=== PATIENT | female | born 1960 | race Caucasian/White ===

== ENCOUNTER → 2020-09-18 | Outpatient (CLI) | payer MEDICARE, BC ==
--- NOTE | 2020-09-18 15:53 | XR ---
KUB HISTORY: Kidney stone, bilateral flank pain frontal KUB on 2 images correlated to prior abdomen dated 09/29/2008 Multiple calcifications are seen overlying the right kidney special lower pole, largest measuring 2 c m, at least 3 calcifications are present, left sided calcifications are also present, largest measuri ng 10 mm, approximately 30 to present. Retained fecal debris present throughout the distribution of t he colon. No pneumoperitoneum. Multiple calcifications are again noted within the pelvis which may be vascular. IMPRESSION: Bilateral nephrolithiasis, correlate for fecal stasis.
== END | disposition home or self-care (01) ==
LOC: RADXRMAIN 10:56
PROVIDERS: ATTEND Urology
DX: N20.0 Calculus of kidney (principal)
CPT/HCPCS: 74018

== ENCOUNTER → 2021-12-26 | Outpatient (CLI) | payer MEDICARE, BC ==
[2021-12-27 03:00] LABS: Alternaria alternata IgE <0.10 kU/L; Aspergillus fumagatus IgE <0.10 kU/L; Birch IgE <0.10 kU/L; Cat Epith & Dander IgE <0.10 kU/L; Cladosporian herbarum IgE <0.10 kU/L; Clam IgE <0.10 kU/L; Cockroach IgE <0.10 kU/L; Codfish IgE <0.10 kU/L; Dermato. farinae IgE <0.10 kU/L; Dog Dander IgE <0.10 kU/L; Egg White IgE 0.15 kU/L; Elm IgE <0.10 kU/L; Maple (Box Elder) IgE <0.10 kU/L; Oak IgE <0.10 kU/L; Peanut IgE <0.10 kU/L; Ragweed,Common IgE <0.10 kU/L; Red Top (Bentgrass) IgE 1.31 kU/L; Scallop IgE <0.10 kU/L; Shrimp IgE <0.10 kU/L; Soybean IgE <0.10 kU/L; Walnut IgE (Food) <0.10 kU/L
== END | disposition home or self-care (01) ==
LOC: LABWHC1 10:19
PROVIDERS: ATTEND Internal Medicine Critical Care Medicine
DX: J45.909 Unspecified asthma, uncomplicated (principal)
CPT/HCPCS: 36415; 82785; 85008; 86003

== ENCOUNTER 2022-01-04 17:32 | Emergency (ER) | payer MEDICARE, BC ==
[2022-01-04] MEDS ORDERED: ONDANSETRON 4 MG/2 ML VIAL IVP STA (19:26)
[2022-01-04] MEDS ORDERED: SODIUM CHLORIDE 0.9% 1,000 ML IV STA (19:26)
[2022-01-04] MEDS ORDERED: KETOROLAC 15 MG/ML 1 ML VIAL IVP STA (19:26)
--- NOTE | 2022-01-04 19:29 | ED ---
General Adult HPI - General Chief complaint: Abdominal Pain Stated complaint: Kidney Stone Time Seen by Provider: 01/04/22 19:25 Source: patient, RN notes reviewed, old records reviewed Mode of arrival: ambulatory Limitations: no limitations - History of Present Illness Initial comments: Well-appearing 61-year-old female presenting with complaints of dysuria and right flank pain for 4 days. Patient has a history of kidney stones and feels like this is a kidney stone. She did call her primary care doctor when she developed dysuria 2 days ago and was prescribed Cipro. She took her first dose this morning. She is also taking Zofran that she had prescribed for migraine headaches in the past for nausea. Denies any vomiting. Decreased appetite to day. Denies any fevers. -: days(s) (4) Location: right (flank) Severity scale (1-10): 8 Quality: constant Consistency: constant Associated Symptoms: nausea/vomiting (No vomiting), other (Dysuria) Treatments Prior to Arrival: other (Cipro, Zofran) - Related Data Allergies Allergy/AdvReac Type Severity Reaction Status Date / Time codeine Allergy Rash/Hives Verified 01/04/22 18:15 Penicillins Allergy Rash/Hives Verified 01/04/22 18:15 pregabalin [From Lyrica] Allergy Rash/Hives Verified 01/04/22 18:15 Sulfa (Sulfonamide Allergy Rash/Hives Verified 01/04/22 18:15 Antibiotics) Review of Systems ROS Statement: Those systems with pertinent positive or pertinent negative responses have been documented in the HPI. ROS Other: All systems not noted in ROS Statement are negative. Past Medical History Past Medical History: Asthma Additional Past Medical History / Comment(s): medulary sponge kidneys, chronic kidney stones, migraines History of Any Multi-Drug Resistant Organisms: None Reported Past Surgical History: Appendectomy, Back Surgery, Tonsillectomy Additional Past Surgical History / Comment(s): lithotripsy, neck plate Past Psychological History: No Psychological Hx Reported Smoking Status: Never smoker Past Alcohol Use History: None Reported Past Drug Use History: None Reported General Exam Limitations: no limitations General appearance: alert, in no apparent distress Head exam: Present: atraumatic Eye exam: Absent: scleral icterus, conjunctival injection ENT exam: Present: mucous membranes moist Neck exam: Present: full ROM. Absent: meningismus Respiratory exam: Present: normal lung sounds bilaterally. Absent: respiratory distress, accessory muscle use Cardiovascular Exam: Present: regular rate Extremities exam: Present: normal capillary refill. Absent: pedal edema Back exam: Present: CVA tenderness (R) Neurological exam: Present: alert, oriented X3, normal gait Psychiatric exam: Present: normal affect, normal mood Skin exam: Present: warm, dry. Absent: cyanosis, diaphoretic, petechiae, pallor Course Vital Signs 01/04/22 01/04/22 18:15 21:34 Temperature 98.2 F 98.3 F Pulse Rate 94 92 Respiratory 16 20 Rate Blood Pressure 118/72 130/69 O2 Sat by Pulse 100 96 Oximetry Medical Decision Making - Medical Decision Making UA shows cloudy urine with moderate blood, greater than 182 white blood cells, rare bacteria. No evidence of leukocytosis with white blood cell count 10.5. Kidney function within normal limits. Patient is afebrile. No vomiting in the emergency room. She is currently on Cipro prescribed by her doctor and she took her first dose this morning. Stones are evident on KUB. CT ordered to rule out hydronephrosis. Numerous large nonobstructing bilateral renal calculi. No hydronephrosis. Bladder distends smoothly. Ureters are not dilated. Patient was offered Toradol for pain but states she cannot take Toradol because it caused stomach ulcers in the past, states Percocet has worked in the past. She was given fentanyl in the emergency room for pain. She was directed to follow up on Friday with Dr. Kelley. Case discussed with Dr. Thomas. - Lab Data Result diagrams: 01/04/22 19:41 01/04/22 19:41 Lab Results 01/04/22 01/04/22 01/04/22 Range/Units 19:41 19:41 19:41 WBC 10.5 (3.8-10.6) k/uL RBC 5.22 (3.80-5.40) m/uL Hgb 16.3 H (11.4-16.0) gm/dL Hct 47.5 H (34.0-46.0) % MCV 91.1 (80.0-100.0) fL MCH 31.3 (25.0-35.0) pg MCHC 34.4 (31.0-37.0) g/dL RDW 12.8 (11.5-15.5) % Plt Count 354 (150-450) k/uL MPV 7.3 Neutrophils % 69 % Lymphocytes % 20 % Monocytes % 6 % Eosinophils % 2 % Basophils % 1 % Neutrophils # 7.3 (1.3-7.7) k/uL Lymphocytes # 2.1 (1.0-4.8) k/uL Monocytes # 0.6 (0-1.0) k/uL Eosinophils # 0.3 (0-0.7) k/uL Basophils # 0.1 (0-0.2) k/uL Sodium 137 (137-145) mmol/L Potassium 4.1 (3.5-5.1) mmol/L Chloride 100 (98-107) mmol/L Carbon Dioxide 29 (22-30) mmol/L Anion Gap 8 mmol/L BUN 16 (7-17) mg/dL Creatinine 0.76 (0.52-1.04) mg/dL Est GFR (CKD-EPI)AfAm >90 (>60 ml/min/1.73 sqM) Est GFR (CKD-EPI)NonAf 85 (>60 ml/min/1.73 sqM) Glucose 106 H (74-99) mg/dL Plasma Lactic Acid Arpit (0.7-2.0) mmol/L Calcium 9.9 (8.4-10.2) mg/dL Total Bilirubin 1.4 H (0.2-1.3) mg/dL AST 23 (14-36) U/L ALT 24 (4-34) U/L Alkaline Phosphatase 131 H (38-126) U/L Total Protein 7.8 (6.3-8.2) g/dL Albumin 4.8 (3.5-5.0) g/dL Urine Color Yellow Urine Appearance Cloudy H (Clear) Urine pH 7.0 (5.0-8.0) Ur Specific [place] 1.009 (1.001-1.035) Urine Protein Negative (Negative) Urine Glucose (UA) Negative (Negative) Urine Ketones Negative (Negative) Urine Blood Moderate H (Negative) Urine Nitrite Negative (Negative) Urine Bilirubin Negative (Negative) Urine Urobilinogen <2.0 (<2.0) mg/dL Ur Leukocyte Esterase Large H (Negative) Urine RBC 10 H (0-5) /hpf Urine WBC >182 H (0-5) /hpf Urine WBC Clumps Moderate H (None) /hpf Urine Bacteria Rare H (None) /hpf 01/04/22 Range/Units 19:41 WBC (3.8-10.6) k/uL RBC (3.80-5.40) m/uL Hgb (11.4-16.0) gm/dL Hct (34.0-46.0) % MCV (80.0-100.0) fL MCH (25.0-35.0) pg MCHC (31.0-37.0) g/dL RDW (11.5-15.5) % Plt Count (150-450) k/uL MPV Neutrophils % % Lymphocytes % % Monocytes % % Eosinophils % % Basophils % % Neutrophils # (1.3-7.7) k/uL Lymphocytes # (1.0-4.8) k/uL Monocytes # (0-1.0) k/uL Eosinophils # (0-0.7) k/uL Basophils # (0-0.2) k/uL Sodium (137-145) mmol/L Potassium (3.5-5.1) mmol/L Chloride (98-107) mmol/L Carbon Dioxide (22-30) mmol/L Anion Gap mmol/L BUN (7-17) mg/dL Creatinine (0.52-1.04) mg/dL Est GFR (CKD-EPI)AfAm (>60 ml/min/1.73 sqM) Est GFR (CKD-EPI)NonAf (>60 ml/min/1.73 sqM) Glucose (74-99) mg/dL Plasma Lactic Acid Arpit 1.1 (0.7-2.0) mmol/L Calcium (8.4-10.2) mg/dL Total Bilirubin (0.2-1.3) mg/dL AST (14-36) U/L ALT (4-34) U/L Alkaline Phosphatase (38-126) U/L Total Protein (6.3-8.2) g/dL Albumin (3.5-5.0) g/dL Urine Color Urine Appearance (Clear) Urine pH (5.0-8.0) Ur Specific [place] (1.001-1.035) Urine Protein (Negative) Urine Glucose (UA) (Negative) Urine Ketones (Negative) Urine Blood (Negative) Urine Nitrite (Negative) Urine Bilirubin (Negative) Urine Urobilinogen (<2.0) mg/dL Ur Leukocyte Esterase (Negative) Urine RBC (0-5) /hpf Urine WBC (0-5) /hpf Urine WBC Clumps (None) /hpf Urine Bacteria (None) /hpf Disposition Clinical Impression: UTI (urinary tract infection), Kidney stones Disposition: HOME SELF-CARE Condition: Good Instructions (If sedation given, give patient instructions): Kidney Stones (ED), Urinary Tract Infection in Women (ED) Additional Instructions: Continue taking the Cipro as prescribed for the urinary tract infection. Follow -up with your primary care doctor and Dr. Amato for continuation of care. Return to the emergency room with any new or concerning symptoms including fever, persistent nausea vomiting or inability to urinate. Is patient prescribed a controlled substance at d/c from ED?: No Referrals: Nonstaff,Physician [REFERRING] - 1-2 days Kendrick Amato MD [STAFF PHYSICIAN] - 1-2 days Time of Disposition: 21:17
[2022-01-04 20:00] LABS: Appearance,Urine Cloudy (Clear); Bacteria,Urine Rare /hpf; Bilirubin,Urine Negative (Negative); Blood,Urine Moderate (Negative); Color,Urine Yellow; Glucose,Urine (UA) Negative (Negative); Ketones,Urine Negative (Negative); Leukocyte Esterase,Urine Large (Negative); Nitrite,Urine Negative (Negative); Protein,Urine Negative (Negative); RBC,Urine 10 /hpf (0-5); Specific Gravity,Urine 1.009 (1.001-1.035); Urobilinogen,Urine <2.0 mg/dL (<2.0); WBC,Urine >182 /hpf (0-5)
[2022-01-04] MEDS ORDERED: fentaNYL (PF) 50 MCG/ML 2 ML AMP IVP STA (20:13)
[2022-01-04] MEDS ORDERED: cefTRIAXone IN SWFI 1,000 MG/10 ML SYRINGE IVP STA (20:14)
--- NOTE | 2022-01-04 20:18 | XR ---
EXAMINATION TYPE: XR KUB DATE OF EXAM: 01/04/2022 COMPARISON: 09/18/2020 HISTORY: Flank pain TECHNIQUE: 2 views upright FINDINGS: There is no sign of intestinal obstruction or pneumoperitoneum. There are numerous calcific ations over both kidneys. The largest calcification measures almost 2 cm over the interpolar right ki dney. There are multiple smaller calcifications ridging up to 6 mm. Lung bases are clear. No evidence of a mass. Bony structures are intact. IMPRESSION: Numerous bilateral renal calcifications without significant change. Nonacute abdomen.
[2022-01-04 20:24] LABS: Basophils # (A) 0.1 k/uL (0-0.2); Basophils % (A) 1 %; Eosinophils # (A) 0.3 k/uL (0-0.7); Eosinophils % (A) 2 %; HCT 47.5 % (34.0-46.0); HGB 16.3 gm/dL (11.4-16.0); Lymphocytes # (A) 2.1 k/uL (1.0-4.8); Lymphocytes % (A) 20 %; MCH 31.3 pg (25.0-35.0); MCHC 34.4 g/dL (31.0-37.0); MCV 91.1 fL (80.0-100.0); Mean Platelet Volume 7.3; Monocytes # (A) 0.6 k/uL (0-1.0); Monocytes % (A) 6 %; Neutrophils # (A) 7.3 k/uL (1.3-7.7); Neutrophils % (A) 69 %; Platelet Count 354 k/uL (150-450); RBC 5.22 m/uL (3.80-5.40); RDW 12.8 % (11.5-15.5); WBC 10.5 k/uL (3.8-10.6)
[2022-01-04 20:50] LABS: ALT 24 U/L (4-34); AST 23 U/L (14-36); African American GFR (CKD) >90 (>60 ml/min/1.73 sqM); Albumin 4.8 g/dL (3.5-5.0); Alkaline Phosphatase 131 U/L (38-126); Anion Gap 8 mmol/L; Blood Urea Nitrogen 16 mg/dL (7-17); Calcium 9.9 mg/dL (8.4-10.2); Carbon Dioxide 29 mmol/L (22-30); Chloride 100 mmol/L (98-107); Glucose 106 mg/dL (74-99); Non-African American GFR(CKD) 85 (>60 ml/min/1.73 sqM); Potassium 4.1 mmol/L (3.5-5.1); Sodium 137 mmol/L (137-145); Total Bilirubin 1.4 mg/dL (0.2-1.3); Total Protein 7.8 g/dL (6.3-8.2)
--- NOTE | 2022-01-04 21:07 | CT ---
EXAMINATION TYPE: CT abdomen pelvis wo con DATE OF EXAM: 01/04/2022 COMPARISON: None HISTORY: right flank [ain CT DLP: 600.1 mGycm Automated exposure control for dose reduction was used. Images obtained from the diaphragm to the floor the pelvis with no contrast. The lung bases are clear. No pleural effusion. Heart size is normal. No pericardial effusion. Liver s pleen stomach pancreas and gallbladder appear intact. The bile ducts are not dilated. There is no adrenal mass. Kidneys have normal size and contour. There are numerous bilateral renal ca lculi up to 2 cm. No retroperitoneal adenopathy. The bladder distends smoothly. No inguinal hernia. N o hydronephrosis. The ureters are not dilated. Lumbar vertebrae have a first-degree L4-5 spondylolisthesis. No lumbar compression fracture. There is bilateral L4 spondylolysis. There is moderate disc space narrowing at L4-5. Bony pelvis is intact. T he hip joints are intact. There is no mesenteric edema. No ascites or free air. No sign of a bowel obstruction. Appendix not se en. No sign of thickened appendix. There are isolated sigmoid diverticula. IMPRESSION: Minimal sigmoid diverticulosis. Numerous large nonobstructing bilateral renal calculi.
[2022-01-04 21:36] VITALS: BP 130/69; PULSE 92; RESP 20; TEMP 98.3
== END 2022-01-04 21:34 | disposition home or self-care (01) ==
LOC: EC 17:32
DX: N20.0 Calculus of kidney (principal); N39.0 Urinary tract infection, site not specified
CPT/HCPCS: 36415; 80053; 83605; 85025; 81001; 87086; 74018; 74176; 99284; 96374; 96375; 96361; J2405; J3010

== ENCOUNTER → 2023-11-12 | Day surgery (SDC) | payer MEDICARE, BC ==
[2023-11-06 09:07] VITALS: BMI 29.1
[~2023-11-12] MED LIST: DEXAMETHASONE SOD PHOSPHATE 4 MG/ML 1 ML VIAL IV ONE; GLYCOPYRROLATE 0.2 MG/ML 2 ML VIAL ONE; HYDROmorphone 0.5 MG/0.5 ML SYRINGE IVP PRN; KETAMINE HCL IN 0.9 % NACL 50 MG/5 ML SYRINGE ONE; LACTATED RINGERS 1,000 ML IV SCH; LIDOCAINE 1% INJ 10MG/ML (20 ML MDV) ONE; MIDAZOLAM 2 MG/2 ML VIAL ONE; ONDANSETRON 4 MG/2 ML VIAL IVP ONE; PROPOFOL 10 MG/ML 20 ML VIAL IV ONE; fentaNYL (PF) 50 MCG/ML 2 ML AMP ONE
[2023-11-12] MEDS: LIDOCAINE 1% (10MG/ML) FOR IV START INTRADERMA PRN (13:00)
[2023-11-12] MEDS: LACTATED RINGERS 1,000 ML IV SCH (13:00)
[2023-11-12] MEDS: ATROPINE SULFATE 0.4 MG/ML 1 ML VIAL IM ONE (13:15)
[2023-11-12 13:19] LABS: Glucose,Whole Blood 104 mg/dL (70-110)
[2023-11-12] MEDS: LIDOCAINE 2% INJ 20 MG/ML INTRATRACH ONE (13:48)
[2023-11-12 14:31] VITALS: RESP 18; TEMP 98
[2023-11-12 15:22] VITALS: BP 120/74; PULSE 67
--- NOTE | 2023-11-12 20:34 | PCN ---
PROCEDURE NOTE PROCEDURES PERFORMED: Bronchoscopy, airway examination, therapeutic lavage, BAL right middle lobe. PREOPERATIVE DIAGNOSES: Bronchitis, retained secretions, rule out infection. POSTOPERATIVE DIAGNOSES: Bronchitis, retained secretions, rule out infection. THERAPY MANAGER: Dr. Ibarra. [employer] GUARD: Dr. Hannah Saeed. ANESTHESIA PROVIDED: [place] [facility] [place]CRIPTION OF PROCEDURE: There was informed consent and universal timeout. The patient's procedure took place in room #1. There was were center. After the patient was adequately sedated and being fully monitored, the bronchoscope was inserted through the right nostril. It passed through the right nasopharynx into the oropharynx. Then we passed it into the hypopharynx. The hypopharyngeal structures, including anterior commissure, true cords, false cords, Retin a retinoid. Form tightness is arytenoids, piriform sinuses, right and left valleculae, all appeared normal. Epiglottis was also normal. Next, the glottic opening was topicalized. The bronchoscope was pushed through the glottic opening into the trachea. There was a mild to moderate degree of tracheomalacia. There were minimal secretions within the trachea. No dominant mass or tumor within the trachea. Tracheal chencho was sharp. Right and left mainstem were topicalized. After topicalization, we did a thorough evaluation. The right upper lobe and its 3 segments, right middle lobe and its 2 segments, right lower lobe and its 5 segments, left upper lobe proper and its 2 segments, lingula and its 2 segments, and left lower lobe and its 4 segments. There is diffuse erythema throughout. It was moderate in severity. There were erythema and hyperemia of airways. There was no dominant mass or tumor noted. Secretions were suctioned without difficulty. We did a formal BAL of the right middle lobe. Thirty mL of bloody fluid was recovered. The patient's fluid was sent for analysis. Additional secretions were suctioned. There was no immediate complication. The patient tolerated the procedure well. The patient will be recovered. MMODL / IJN: [id number] /
[2023-11-13 04:58] LABS: Appearance,BF Bloody (Clear); RBC, Body Fluid 64000 /UL (0-2000)
[2023-11-13 09:13] LABS: Nucleated Cells, Body Fluid 125 /UL
== END ==
LOC: ORWHC2ENDO 12:18
PROVIDERS: ATTEND Internal Medicine Critical Care Medicine
DX: J40 Bronchitis, not specified as acute or chronic (principal)
CPT/HCPCS: 89050; 87070; 87205; 87116; 87102; 87206; 31624; J2001 ×2; J2250; J0461; J3010; J2704; 88108; 88305

== ENCOUNTER → 2024-01-29 | Outpatient (CLI) | payer MEDICARE, BC | END | disposition home or self-care (01) | LOC: LABWHC1 09:41 | PROVIDERS: ATTEND Internal Medicine Critical Care Medicine | DX: J45.50 Severe persistent asthma, uncomplicated (principal) | CPT/HCPCS: 36415; 82785 ==

== ENCOUNTER → 2024-08-02 | Outpatient (CLI) | payer MEDICARE, BC ==
--- NOTE | 2024-08-02 12:12 | XR ---
EXAMINATION TYPE: XR sternum DATE OF EXAM: 08/02/2024 12:07 PM INDICATION: Patient age:Female; 63 years old; Reason for study: R072 STERNAL PAIN; [facility]. pain COMPARISON: Chest radiograph 06/28/2021 TECHNIQUE: Frontal and oblique views of the sternum. FINDINGS: No evidence of fracture. No osseous erosions. Partial visualization images cervical fusion hardware. Atherosclerotic calcification of the aorta. Left basilar linear atelectasis. The visualized lungs are otherwise clear. IMPRESSION: No acute osseous pathology. [facility], , 08/02/2024 12:09 PM
== END | disposition home or self-care (01) ==
LOC: RADXRYALE 11:57
PROVIDERS: ATTEND Internal Medicine
DX: R07.2 Precordial pain (principal); I70.0 Atherosclerosis of aorta
CPT/HCPCS: 71120